=== PATIENT | male | born 2000 | race Two or more races ===

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

== ENCOUNTER 2020-07-05 20:44 | Emergency (ER) | payer MEDICAID ==
[~2020-07-05] VITALS: Ht 162.6 cm; Wt 79.4 kg
[2020-07-05 23:06] LABS: Basophils # (auto) 0.1 10 ^3/uL (0-0.2); Basophils % (auto) 0.6 % (0.0-2.0); Eosinophils # (auto) 0 10 ^3/uL (0-0.8); Eosinophils % (auto) 0.3 % (0.0-7.0); Hemoglobin 14.9 g/dL (13.5-17.5); Lymphocytes # (auto) 2.6 10 ^3/uL (0.4-5.4); Lymphocytes % (auto) 18.7 % (10.0-50.0); Mean Corpuscular Hemoglobin 27.8 pg (28.0-32.0); Mean Corpuscular Hgb Conc. 33.2 g/dL (32.0-36.0); Mean Corpuscular Volume 83.8 fL (80.0-100.0); Monocytes # (auto) 0.9 10 ^3/uL (0-1.3); Neutrophils # (auto) 10.6 10 ^3/uL (1.6-8.6); Neutrophils % (auto) 74.4 % (37.0-80.0); Nucleated Red Blood Cells % 0.1 %; Platelet Count (auto) 312 10^3/uL (140-450); Red Blood Cells 5.36 10^6/uL (4.5-5.90); Red Cell Distribution Width 13.4 % (11.8-14.3); White Blood Cell 14.2 10^3/uL (4.4-10.8)
[2020-07-05 23:25] LABS: Albumin 4.2 g/dL (3.4-5.0); Anion Gap 10 (5-15); Calcium 8.9 mg/dL (8.5-10.1); Carbon Dioxide 25 mmol/L (21-32); Chloride 105 mmol/L (98-107); Glucose 92 mg/dL (74-106); Potassium 3.2 mmol/L (3.5-5.1); Sodium 140 mmol/L (136-145)
[2020-07-05 23:27] LABS: Alanine Aminotransferase 151 U/L (16-61); Aspartate Aminotransferase 42 U/L (15-37); GFR African American 141 mL/min; GFR Non-African American 117 mL/min
[2020-07-05 23:32] LABS: Alkaline Phosphatase 86 U/L (45-117); Bilirubin, Total 0.7 mg/dL (0.2-1.0); Total Protein 7.9 g/dL (6.4-8.2)
[2020-07-05 23:58] LABS: BUN/Creatinine Ratio 11.5; Blood Urea Nitrogen 10 mg/dL (7-18)
[2020-07-06] MEDS ORDERED: POTASSIUM CHL 20 Meq TABLET PO ONE ×2 (01:55→02:00)
[2020-07-06 03:20] VITALS: BP 129/62
== END 2020-07-06 03:31 | disposition home or self-care (01) ==
LOC: EDBD 20:44 → ER 20:44
DX: S00.93XA Contusion of unspecified part of head, initial encounter (principal); F41.0 Panic disorder [episodic paroxysmal anxiety]; R55 Syncope and collapse; R74.8 Abnormal levels of other serum enzymes; J45.909 Unspecified asthma, uncomplicated; W18.39XA Other fall on same level, initial encounter; Y93.89 Activity, other specified; Y92.89 Other specified places as the place of occurrence of the external cause; Y99.8 Other external cause status
CPT/HCPCS: 36415; 70450; 71045; 72125; 80053; 84484; 85025; 93005

== ENCOUNTER 2022-01-16 20:15 | Emergency (ER) | payer MEDICAID ==
[~2022-01-16] VITALS: Ht 162.6 cm; Wt 96.2 kg
[2022-01-16 20:51] VITALS: BP 148/88
[2022-01-16] MEDS ORDERED: ACETAMINOPHEN 325 MG TAB PO ONE (21:15)
[2022-01-16] MEDS ORDERED: SODIUM CHLORIDE 0.9% 1,000 ML IV ONE (21:30)
== END 2022-01-16 22:28 | disposition left against medical advice (07) ==
LOC: ER 20:15
DX: J06.9 Acute upper respiratory infection, unspecified (principal); J45.909 Unspecified asthma, uncomplicated